=== PATIENT | male | born 1990 | race Caucasian/White ===

== ENCOUNTER 2017-01-25 00:56 | Emergency (ER) | payer SELFPAY ==
[2017-01-25 00:58] VITALS: BP 147/87; PULSE 104; RESP 16; TEMP 97.5; O2SAT 100
[2017-01-25] MEDS ORDERED: AMPH1TAB29 PO (01:24)
[2017-01-25 01:27] VITALS: BP 144/82; PULSE 95; RESP 16; O2SAT 100
[2017-01-25 01:44] VITALS: RESP 16
[2017-01-25] MEDS ORDERED: SODIUM CHLORIDE 0.9% FLUSH 10 ML FLUSH IVF PRN (01:45)
[2017-01-25] MEDS ORDERED: KETOROLAC TROMETHAMINE 30 MG/ML (IVP) VIAL IV PUSH ONE (01:45)
[2017-01-25 02:10] LABS: AUTOMATED NEUTROPHIL # 4.6 TH/MM3 (1.8-7.7); BASOPHIL % 0.3 % (0.0-2.0); EOSINOPHIL # 0.1 TH/MM3 (0-0.4); EOSINOPHIL % 0.6 % (0.0-4.0); HEMATOCRIT 45.8 % (39.0-51.0); HEMO FLAGS DIFF FINAL; LYMPH % 36.2 % (9.0-44.0); MEAN CELL VOLUME 93.1 FL (80.0-100.0); MEAN CORPUSCULAR HEMOGLOBIN 32.8 PG (27.0-34.0); MEAN CORPUSCULAR HGB CONC 35.2 % (32.0-36.0); MONO % 7.8 % (0.0-8.0); NEUT % 55.1 % (16.0-70.0); PLATELET COUNT 255 TH/MM3 (150-450); RED BLOOD COUNT 4.92 MIL/MM3 (4.50-5.90); RED CELL DISTRIBUTION WIDTH 13.2 % (11.6-17.2); WHITE BLOOD COUNT 8.4 TH/MM3 (4.0-11.0)
[2017-01-25 02:21] LABS: APTT (PATIENT) 27.1 SEC (24.3-30.1); PROTHROMBIN TIME - PATIENT 11.3 SEC (9.8-11.6)
[2017-01-25 02:31] LABS: ALT (GPT) 49 U/L (12-78); ANION GAP 9 MEQ/L (5-15); AST (GOT) 28 U/L (15-37); BICARBONATE 25.5 MEQ/L (21.0-32.0); BLOOD UREA NITROGEN 8 MG/DL (7-18); CHLORIDE 101 MEQ/L (98-107); GLOMERULAR FILTRATION RATE 73 ML/MIN (>89); POTASSIUM 3.6 MEQ/L (3.5-5.1); SODIUM (NA) 135 MEQ/L (136-145)
[2017-01-25 02:35] LABS: ALKALINE PHOSPHATASE 62 U/L (45-117); TOTAL BILIRUBIN ADULT 0.7 MG/DL (0.2-1.0)
--- NOTE | 2017-01-25 02:40 | RADRPT ---
EXAM DATE/TIME: 01/25/2017 02:15 [place] COMPARISON: No previous studies available for comparison. INDICATIONS : Shortness of breath. MEDICAL HISTORY : Asthma SURGICAL HISTORY : None. ENCOUNTER: Initial ACUITY: 1 day PAIN SCORE: 0/10 LOCATION: Bilateral chest FINDINGS: PA and lateral views of the chest demonstrate the lungs to be symmetrically aerated without evidence of mass, infiltrate or effusion. The cardiomediastinal contours are unremarkable. Osseous structure s are intact. CONCLUSION: No acute disease. Bakari Hanson MD on January 25, 2017 at 2:39 Board Certified Radiologist. This report was verified electronically.
[2017-01-25 02:52] VITALS: RESP 16
--- NOTE | 2017-01-25 03:04 | PD ---
HPI Chief Complaint: Chest Pain Time Seen by Provider: 01:29 Travel History International Travel<30 days: No Contact w/Intl Traveler<30days: No Traveled to known affect area: No History of Present Illness HPI Patient is a 26-year-old male who comes in complaining of chest pain and shortness of breath. He says he took an Ativan tonight trying go to sleep when he started to have chest pain, shortness of breath and he felt very warm. He says he hasn't slept in 2 days due to work and a fight with his girlfriend. He does report using cocaine 3 days ago. He also takes Adderall to stay awake at work. He denies any heart problems. He denies any family history of heart problems. He denies nausea or vomiting. He denies cough or cold, fever or chills. PFSH Past Medical History Asthma: Yes Anxiety: Yes Immunizations Current: Yes Tetanus Vaccination: Never Vaccinated Influenza Vaccination: No Social History Alcohol Use: Yes (socially) Tobacco Use: Yes Substance Use: Yes (cocaine two days ago) Allergies-Medications (Allergen,Severity, Reaction): Coded Allergies: No Known Allergies (Unverified , 01/25/17) Reported Meds & Prescriptions Reported Meds & Active Scripts Active Reported Adderall (Amphetamine-Dextroamphetamine) 5 Mg Tab 5 Mg PO DAILY Avoid late evening doses. Space doses at least 4 to 6 hours if more than once/day dosing. Review of Systems Except as stated in HPI: all other systems reviewed are Neg General / Constitutional: No: Fever, Chills HENT: No: Headaches, Lightheadedness Cardiovascular: Positive: Chest Pain or Discomfort Respiratory: Positive: Shortness of Breath, No: Cough Gastrointestinal: No: Nausea, Vomiting Musculoskeletal: No: Myalgias, Edema Skin: No Rash, No Change in Pigmentation Neurologic: No: Weakness, Dizziness Psychiatric: Positive: Anxiety Physical Exam Narrative GENERAL: Awake and alert, in no acute distress. SKIN: Focused skin assessment warm/dry. HEAD: Atraumatic. Normocephalic. EYES: Pupils equal and round. No scleral icterus. ENT: No nasal bleeding or discharge. Mucous membranes pink and moist. NECK: Trachea midline. No JVD. CARDIOVASCULAR: Regular rate and rhythm. No murmur appreciated. RESPIRATORY: No accessory muscle use. Clear to auscultation. Breath sounds equal bilaterally. GASTROINTESTINAL: Abdomen soft, non-tender, nondistended. MUSCULOSKELETAL: No obvious deformities. No clubbing. No cyanosis. No edema. NEUROLOGICAL: Awake and alert. No obvious cranial nerve deficits. Motor grossly within normal limits. Normal speech. PSYCHIATRIC: Appropriate mood and affect; insight and judgment normal. Data Data Last Documented VS Vital Signs Date Time Temp Pulse Resp B/P Pulse Ox O2 Delivery O2 Flow Rate FiO2 01/25/17 01:44 16 01/25/17 01:27 95 144/82 100 Room Air 01/25/17 00:58 97.5 Orders Complete Blood Count With Diff (01/25/17 01:42) Comprehensive Metabolic Panel (01/25/17 01:42) D-Dimer (01/25/17 01:42) Prothrombin Time / Inr (Pt) (01/25/17 01:42) Act Partial Throm Time (Ptt) (01/25/17 01:42) Troponin I (01/25/17 01:42) Ecg Monitoring (01/25/17 01:42) Bilateral Bp Monitoring (01/25/17 01:42) Iv Access Insert/Monitor (01/25/17 01:42) Oximetry (01/25/17 01:42) Sodium Chloride 0.9% Flush (Ns Flush) (01/25/17 01:45) Chest, Pa & Lat (01/25/17 01:42) Ketorolac Inj (Toradol Inj) (01/25/17 01:45) Labs Laboratory Tests Test 01/25/17 01:45 White Blood Count 8.4 TH/MM3 Red Blood Count 4.92 MIL/MM3 Hemoglobin 16.1 GM/DL Hematocrit 45.8 % Mean Corpuscular Volume 93.1 FL Mean Corpuscular Hemoglobin 32.8 PG Mean Corpuscular Hemoglobin 35.2 % Concent Red Cell Distribution Width 13.2 % Platelet Count 255 TH/MM3 Mean Platelet Volume 8.5 FL Neutrophils (%) (Auto) 55.1 % Lymphocytes (%) (Auto) 36.2 % Monocytes (%) (Auto) 7.8 % Eosinophils (%) (Auto) 0.6 % Basophils (%) (Auto) 0.3 % Neutrophils # (Auto) 4.6 TH/MM3 Lymphocytes # (Auto) 3.0 TH/MM3 Monocytes # (Auto) 0.7 TH/MM3 Eosinophils # (Auto) 0.1 TH/MM3 Basophils # (Auto) 0.0 TH/MM3 CBC Comment DIFF FINAL Differential Comment Prothrombin Time 11.3 SEC Prothromb Time International 1.0 RATIO Ratio Activated Partial 27.1 SEC Thromboplast Time D-Dimer Quantitative (PE/DVT) LESS THAN 0.19 MG/L FEU Sodium Level 135 MEQ/L Potassium Level 3.6 MEQ/L Chloride Level 101 MEQ/L Carbon Dioxide Level 25.5 MEQ/L Anion Gap 9 MEQ/L Blood Urea Nitrogen 8 MG/DL Creatinine 1.20 MG/DL Estimat Glomerular Filtration 73 ML/MIN Rate Random Glucose 76 MG/DL Calcium Level 10.2 MG/DL Total Bilirubin 0.7 MG/DL Aspartate Amino Transf 28 U/L (AST/SGOT) Alanine Aminotransferase 49 U/L (ALT/SGPT) Alkaline Phosphatase 62 U/L Troponin I LESS THAN 0.02 NG/ML Total Protein 8.8 GM/DL Albumin 4.7 GM/DL MDM Medical Decision Making Medical Screen Exam Complete: Yes Emergency Medical Condition: Yes Interpretation(s) ECG shows sinus tachycardia at 107, no ST elevation or depression. Differential Diagnosis Anxiety versus chest wall pain versus pericarditis versus costochondritis versus ACS (unlikely) Narrative Course Patient is a 26-year-old male comes in complaining of chest pain, shortness of breath after taking an Ativan. Exam shows no acute abnormalities. IV established, labs sent, patient connected to threat monitoring analyst. Labs show no acute abnormalities, troponin and d-dimer are negative. Chest x-ray shows no acute abnormalities. Patient given Toradol for pain. He states he is feeling better after the Toradol. He would like to go home and go to sleep. He will be discharged home. Advised to avoid drug use. Advised to avoid specifically cocaine and Adderall going forward and to quit smoking. He is advised follow-up with her primary care doctor. Advised to return to the ED as needed for any worsening symptoms. Diagnosis Primary Impression: Anxiety Additional Impression: Chest pain Qualified Code: R07.89 - Other chest pain Patient Instructions: Anxiety (ED), Chest Pain (ED), General Instructions Additional Instructions: Avoid drug use and quit smoking. Follow-up with a primary care doctor. Return to the ED as needed for any worsening symptoms. He can take ibuprofen as needed for pain. Disposition: 01 DISCHARGE HOME Condition: Stable Hollie Galvan MD Jan 25, 2017 03:04
--- NOTE | 2017-01-25 09:32 | EKG ---
Date Performed: 01/25/2017 Time Performed: 01:32:17 PTAGE: 26 years EKG: SINUS TACHYCARDIA WITH SHORT ME INTERVAL POSSIBLE RIGHT VENTRICULAR CONDUCTION DELAY ABNORM AL RHYTHM ECG NO PREVIOUS TRACING DOCTOR: Albin Medley Interpretating Date/Time 01/25/2017 09:28:48
== END 2017-01-25 03:13 | disposition home or self-care (01) ==
LOC: NEPC 00:56
DX: F41.9 Anxiety disorder, unspecified (principal); R07.89 Other chest pain; R06.02 Shortness of breath; R94.31 Abnormal electrocardiogram [ECG] [EKG]; Z72.0 Tobacco use; Z87.09 Personal history of other diseases of the respiratory system; Z86.59 Personal history of other mental and behavioral disorders
CPT/HCPCS: 71020; 80053; 84484; 85025; 85379; 85610; 85730; 93005; 96374; 99284; J1885